=== PATIENT | female | born 1950 | race Caucasian/White ===

== ENCOUNTER 2016-11-26 10:22 | Observation (INO) | payer OTHER, MEDICARE ==
[2016-11-26] MEDS ORDERED: ASPIRIN 81 MG TABLET, CHEWABLE PO ONE ×2 (10:58→11:10)
--- NOTE | 2016-11-26 11:00 | ER Document Report ---
ED Medical Screen (RME) - General Chief Complaint: Chest Pain Stated Complaint: CHEST PAIN Time Seen by Provider: 11/26/16 10:53 Notes: 66-year-old female with a history of non-STEMI approximately 8 months ago presents the emergency department complaining of sudden onset of left lower chest and left upper quadrant abdominal pain that extends to the mid sternal area when she was getting up off the floor. States that it worsened with deep breathing and movement but she was also short of breath and flushed at the time. Nurse at work recommend she come to the emergency department. States it feels somewhat different than her prior heart attack. TRAVEL OUTSIDE OF THE [place] IN LAST 30 DAYS: No - Related Data Allergies/Adverse Reactions: adhesive Allergy (Verified 11/26/16 10:43) latex Allergy (Verified 11/26/16 10:43) Past Medical History - General Information source: Patient - Social History Cigarette use (# per day): No Chew tobacco use (# tins/day): No Frequency of alcohol use: None Drug Abuse: None - Past Medical History Cardiac Medical History: Reports: Hx Hypercholesterolemia - not being treated, Hx Hypertension - not currently being treated Denies: Hx Heart Attack Pulmonary Medical History: Denies: Hx Asthma Neurological Medical History: Reports: Hx Seizures - childhood seizures. Denies : Hx Cerebrovascular Accident Endocrine Medical History: Reports: Hx Diabetes Mellitus Type 2 - managing with diet, taken off meds due to weight loss. Denies: Hx Diabetes Mellitus Type 1 Renal/ Medical History: Denies: Hx Peritoneal Dialysis GI Medical History: Reports: Hx Gastroesophageal Reflux Disease, Hx Ulcer. Denies: Hx Hepatitis, Hx Hiatal Hernia Musculoskeltal Medical History: Reports Hx Arthritis - osteo Psychiatric Medical History: Reports: Hx Depression Infectious Medical History: Denies: Hx Hepatitis Past Surgical History: Reports: Hx Appendectomy, Hx Cholecystectomy, Hx Hysterectomy, Hx Orthopedic Surgery - total left knee replacement surgery. Denies: Hx Mastectomy, Hx Open Heart Surgery, Hx Pacemaker - Immunizations Hx Diphtheria, Pertussis, Tetanus Vaccination: Yes Physical Exam - Vital signs Vitals: Temp Pulse BP Pulse Ox 97.9 F 62 136/59 H 96 11/26/16 10:41 11/26/16 10:41 11/26/16 10:41 11/26/16 10:41 - Respiratory Respiratory status: No respiratory distress Chest status: Nontender Breath sounds: Normal Chest palpation: Normal - Cardiovascular Rhythm: Regular Heart sounds: Normal auscultation Murmur: No Course - Vital Signs Vital signs: Temp Pulse Resp BP Pulse Ox 97.9 F 62 136/59 H 96 11/26/16 10:41 11/26/16 10:41 11/26/16 10:41 11/26/16 10:41
--- NOTE | 2016-11-26 11:17 | ER Document Report ---
ED Cardiac - General Chief Complaint: Chest Pain Stated Complaint: CHEST PAIN Time Seen by Provider: 11/26/16 10:53 Mode of Arrival: Ambulatory Information source: Patient Notes: 66 yo depressed, htn, DM2, left knee replacement, hyst, edd, CAD, COPD, no etoh, no drugs, [place], started hurting left chest/ tightness at 9 am, worse when bending forward and moving, turning made it worse, a little light headed-or spacey feeling, got real relaxed, and was clammy according to the nurse at work. Lasted until she got to the ER after 10 am when she had some shortness of breath. Gone now. She does not think it is heart related. Took 1 baby aspirin at that time. PMH: [place] 8 months ago, sent to [facility], cath done, not bad enough for stent but did damage her heart. PCP: Dr. Markell Rodriguez, Terminal System Operator dr. Tracie Rodriguez. TRAVEL OUTSIDE OF THE [place] IN LAST 30 DAYS: No - Related Data Allergies/Adverse Reactions: adhesive Allergy (Verified 11/26/16 10:43) latex Allergy (Verified 11/26/16 10:43) Past Medical History - General Information source: Patient - Social History Smoking Status: Never Smoker Cigarette use (# per day): No Chew tobacco use (# tins/day): No Frequency of alcohol use: None Drug Abuse: None Family History: None Patient has suicidal ideation: No Patient has homicidal ideation: No - Past Medical History Cardiac Medical History: Reports: Hx Heart Attack, Hx Hypercholesterolemia - not being treated, Hx Hypertension - not currently being treated Neurological Medical History: Reports: Hx Seizures - childhood seizures Endocrine Medical History: Reports: Hx Diabetes Mellitus Type 2 - managing with diet, taken off meds due to weight loss Renal/ Medical History: Denies: Hx Peritoneal Dialysis GI Medical History: Reports: Hx Gastroesophageal Reflux Disease, Hx Ulcer Musculoskeltal Medical History: Reports Hx Arthritis - osteo Psychiatric Medical History: Reports: Hx Depression Past Surgical History: Reports: Hx Appendectomy, Hx Cholecystectomy, Hx Hysterectomy, Hx Orthopedic Surgery - total left knee replacement surgery - Immunizations Hx Diphtheria, Pertussis, Tetanus Vaccination: Yes Hx Pneumococcal Vaccination: 03/31/15 Physical Exam - Vital signs Vitals: Temp Pulse BP Pulse Ox 97.9 F 62 136/59 H 96 11/26/16 10:41 11/26/16 10:41 11/26/16 10:41 11/26/16 10:41 Interpretation: Normal - General General appearance: Appears well, Alert - HEENT Head: Normocephalic, Atraumatic Eyes: Normal Conjunctiva: Normal Pupils: PERRL Neck: Supple - Respiratory Respiratory status: No respiratory distress Chest status: Nontender Breath sounds: Normal Chest palpation: Normal - Cardiovascular Rhythm: Regular Heart sounds: Normal auscultation Murmur: No - Abdominal Inspection: Normal Distension: No distension Bowel sounds: Normal Tenderness: Nontender. No: Tender Organomegaly: No organomegaly - Back Back: Normal, Nontender - Extremities General upper extremity: Normal inspection, Nontender, Normal color, Normal ROM , Normal temperature General lower extremity: Normal inspection, Nontender, Normal color, Normal ROM , Normal temperature, Normal weight bearing. No: Staci's sign - Neurological Neuro grossly intact: Yes Cognition: Normal Orientation: AAOx4 [place] Coma Scale Eye Opening: Spontaneous [place] Coma Scale Verbal: Oriented [place] Coma Scale Motor: Obeys Commands [place] Coma Scale Total: 15 Speech: Normal Motor strength normal: LUE, RUE, LLE, RLE Sensory: Normal - Psychological Associated symptoms: Normal affect, Normal mood - Skin Skin Temperature: Warm Skin Moisture: Dry Skin Color: Normal Course - Re-evaluation Re-evalutation: 11/26/16 13:04 timothy PRUITT will admit for the hospitalist group telemetry observation. Pt agrees to this. the troponin is negative, cxr negative. ekg NSR. other labs OK, pt painfree now. - Vital Signs Vital signs: Temp Pulse Resp BP Pulse Ox 97.9 F 62 14 119/57 L 96 11/26/16 10:41 11/26/16 10:41 11/26/16 11:21 11/26/16 11:21 11/26/16 11:42 - Laboratory Result Diagrams: 11/26/16 11:05 11/26/16 11:05 Laboratory results interpreted by me: 11/26/16 11/26/16 11:05 11:05 RDW 14.3 H Alkaline Phosphatase 180 H Discharge - Discharge Clinical Impression: chest pain Condition: Stable Disposition: ADMITTED OBSERVATION Admitting Provider: Hospitalist Unit Admitted: Telemetry
--- NOTE | 2016-11-26 11:39 | RADIOLOGY REPORT (SQ) ---
EXAM DESCRIPTION: CHEST SINGLE VIEW COMPLETED DATE/TIME: 11/26/2016 11:31 am REASON FOR STUDY: chest pain, SOB COMPARISON: 01/11/2016 EXAM PARAMETERS: NUMBER OF VIEWS: One view. TECHNIQUE: Single frontal radiographic view of the chest acquired. RADIATION DOSE: NA LIMITATIONS: None. FINDINGS: LUNGS AND PLEURA: No opacities, masses or pneumothorax. No pleural effusion. MEDIASTINUM AND HILAR STRUCTURES: No masses. Contour normal. HEART AND VASCULAR STRUCTURES: Heart normal in size. Normal vasculature. BONES: No acute findings. HARDWARE: None in the chest. OTHER: No other significant finding. IMPRESSION: NO ACUTE RADIOGRAPHIC FINDING IN THE CHEST. TECHNICAL DOCUMENTATION: JOB ID: [id number]
[2016-11-26 11:45] LABS: ABSOLUTE BASOPHILS # (AUTO) 0.1 10^3/uL (0.0-0.2); ABSOLUTE EOSINOPHILS # (AUTO) 0.3 10^3/uL (0.0-0.6); ABSOLUTE LYMPHOCYTES (AUTO) 2.4 10^3/uL (0.5-4.7); ABSOLUTE MONOCYTES (AUTO) 0.7 10^3/uL (0.1-1.4); ABSOLUTE NEUT (AUTO) 6.4 10^3/uL (1.7-8.2); EOSINOPHILS % (AUTO) 3.1 % (0-6); HEMATOCRIT 41.6 % (36.0-47.0); HEMOGLOBIN 14.3 g/dL (12.0-15.5); HGB HCT DIFFERENCE 1.3; MEAN CORPUSCULAR HEMOGLOBIN 28.3 pg (27.0-33.4); MEAN CORPUSCULAR HGB CONC 34.4 g/dL (32.0-36.0); MEAN CORPUSCULAR VOLUME 82 fl (80-97); MONOCYTES % (AUTO) 6.7 % (3-13); RED BLOOD COUNT 5.06 10^6/uL (3.72-5.28); RED CELL DISTRIBUTION WIDTH 14.3 % (11.5-14.0); SEGMENTED NEUTROPHILS % (AUTO) 65.2 % (42-78); WHITE BLOOD COUNT 9.9 10^3/uL (4.0-10.5)
[2016-11-26 12:29] LABS: ALANINE AMINOTRANSFERASE 24 U/L (9-52); ALBUMIN 4.2 g/dL (3.5-5.0); ALKALINE PHOSPHATASE 180 U/L (38-126); ANION GAP 11 (5-19); ASPARTATE AMINO TRANSFERASE 21 U/L (14-36); BILIRUBIN,DIRECT 0.4 mg/dL (0.0-0.4); BILIRUBIN,TOTAL 0.6 mg/dL (0.2-1.3); BLOOD UREA NITROGEN 18 mg/dL (7-20); CALCIUM 10.1 mg/dL (8.4-10.2); CARBON DIOXIDE 26 mmol/L (22-30); CHLORIDE 105 mmol/L (98-107); CREATINE KINASE 75 U/L (30-135); CREATININE RESULT 0.72 mg/dL (0.52-1.25); GLUCOSE 91 mg/dL (75-110); POTASSIUM 4.2 mmol/L (3.6-5.0); SODIUM 141.9 mmol/L (137-145)
[2016-11-26 12:34] LABS: CREATINE KINASE MB 1.15 ng/mL (<4.55)
[2016-11-26 12:42] LABS: TROPONIN I < 0.012 ng/mL
[2016-11-26] MEDS ORDERED: DEXTROSE 50%-WATER 25 GM/50 ML DISP.SYRIN IV PRN ×2 (15:07)
[2016-11-26] MEDS ORDERED: GLUCAGON,HUMAN RECOMB 1 MG INJ SUBCUT PRN (15:07)
[2016-11-26] MEDS ORDERED: DEXTROSE 40% GEL 15 GM TUBE PO PRN ×2 (15:07)
--- NOTE | 2016-11-26 15:23 | PDOC H&P ---
History of Present Illness Admission Date/PCP: 11/26/16 13:38 MISAEL OLIVO MD Brand Analyst: Dr. Hodges at the [facility] Patient complains of: Chest pain History of Present Illness: LAYO STOLL is a 66 year old female who presented to the emergency room with chest pain. Her past medical history is significant for a recent non-ST elevation myocardial infarction approximately 8 months ago. She was transferred from this facility to where she underwent a cardiac catheterization and was found to have nonobstructing coronary artery disease that did not require stent placement. Since that time she is followed with Dr. Hodges from the [facility]. In addition the patient has known hypertension, hyperlipidemia and diet-controlled diabetes mellitus. She also has a history of gastroesophageal reflux disease osteoarthritis and depression. She was in her usual state of health until earlier this morning where she developed substernal chest pain and pressure. She states that the pain would get worse anytime she would get up and move around and it would be relieved with rest. She states that she was quite diaphoretic when this was going on. She has had no nausea or vomiting. She states that the pain did not radiate. Past Medical History Cardiac Medical History: Reports: Myocardial Infarction, Hyperlipidema - not being treated, Hypertension - not currently being treated Pulmonary Medical History: Denies: Asthma, Chronic Obstructive Pulmonary Disease (COPD) EENT Medical History: Reports: None Neurological Medical History: Reports: Seizures - childhood seizures Denies: Ischemic CVA, Migraine Endocrine Medical History: Reports: Diabetes Mellitus Type 2 - managing with diet, taken off meds due to weight loss Denies: Diabetes Mellitus Type 1 Renal/ Medical History: Reports: None Malignancy Medical History: Reports: None GI Medical History: Reports: None, Gastroesophageal Reflux Disease Denies: Hepatitis, Hiatal Hernia, Peptic Ulcer Disease Musculoskeltal Medical History: Reports: Arthritis - osteo Skin Medical History: Reports: None Psychiatric Medical History: Reports: Depression Denies: Dementia, General Anxiety Disorder, Substance Abuse, Tobacco Dependency Traumatic Medical History: Reports: None Hematology: Denies: Anemia, Bleeding Tendencies Infectious Medical History: Reports: None Past Surgical History Past Surgical History: Reports: Appendectomy, Cholecystectomy, Hysterectomy, Orthopedic Surgery - total left knee replacement surgery Denies: Amputation, Mastectomy, Pacemaker Social History Information Source: Patient Lives with: Spouse/Significant other Smoking Status: Never Smoker Frequency of Alcohol Use: None Hx Recreational Drug Use: No Hx Prescription Drug Abuse: No - Advance Directive Resuscitation Status: Full Code Family History Family History: CAD Parental Family History Reviewed: Yes Children Family History Reviewed: Yes Sibling(s) Family History Reviewed.: Yes Medication/Allergy Allergies/Adverse Reactions: adhesive Allergy (Verified 11/26/16 10:43) latex Allergy (Verified 11/26/16 10:43) Review of Systems Constitutional: PRESENT: headache(s). ABSENT: chills, fever(s), night sweats, weight loss Eyes: ABSENT: visual disturbances Ears: ABSENT: hearing changes Nose, Mouth, and Throat: PRESENT: headache(s). ABSENT: sore throat, vertigo Cardiovascular: PRESENT: chest pain, palpitations - She reports that she has felt like her heart has been racing at night at times.. ABSENT: edema, orthropnea Respiratory: PRESENT: cough Gastrointestinal: PRESENT: heartburn. ABSENT: abdominal pain, bloating, constipation, dysphagia, nausea, vomiting Genitourinary: ABSENT: difficulty urinating, dysuria, hematuria Musculoskeletal: PRESENT: back pain Integumentary: PRESENT: diaphoresis. ABSENT: erythema, lesions, pruritus, rash , wounds Neurological: ABSENT: abnormal gait, abnormal speech, confusion, dizziness, frequent falls, memory loss, numbness, syncope, tingling, weakness Psychiatric: PRESENT: depression. ABSENT: anxiety Endocrine: ABSENT: cold intolerance, heat intolerance, polydipsia, polyuria Hematologic/Lymphatic: ABSENT: easy bleeding, easy bruising, lymphadenopathy Allergic/Immunologic: PRESENT: seasonal rhinorrhea Physical Exam Vital Signs: Temp Pulse Resp BP Pulse Ox 97.9 F 62 16 119/50 L 97 11/26/16 10:41 11/26/16 10:41 11/26/16 14:01 11/26/16 14:01 11/26/16 14:01 General appearance: PRESENT: no acute distress, obese, well-developed, well- nourished Head exam: PRESENT: atraumatic, normocephalic Eye exam: PRESENT: conjunctiva pink, EOMI, PERRLA. ABSENT: scleral icterus Ear exam: PRESENT: normal external ear exam Mouth exam: PRESENT: moist, neck supple, tongue midline Neck exam: ABSENT: carotid bruit, JVD, lymphadenopathy, thyromegaly Respiratory exam: PRESENT: clear to auscultation dar. ABSENT: rales, rhonchi, wheezes Cardiovascular exam: PRESENT: RRR. ABSENT: diastolic murmur, rubs, systolic murmur Vascular exam: PRESENT: normal capillary refill GI/Abdominal exam: PRESENT: normal bowel sounds, soft. ABSENT: distended, guarding, mass, organolmegaly, rebound, tenderness Rectal exam: PRESENT: deferred Extremities exam: PRESENT: full ROM. ABSENT: calf tenderness, clubbing, pedal edema Musculoskeletal exam: PRESENT: ambulatory Neurological exam: PRESENT: alert, awake, oriented to person, oriented to place , oriented to time, oriented to situation, CN II-XII grossly intact. ABSENT: motor sensory deficit Psychiatric exam: PRESENT: appropriate affect, normal mood. ABSENT: homicidal ideation, suicidal ideation Skin exam: PRESENT: dry, intact, warm. ABSENT: cyanosis, rash Results Impressions: Chest X-Ray 11/26/16 10:58 IMPRESSION: NO ACUTE RADIOGRAPHIC FINDING IN THE CHEST. Assessment & Plan - Diagnosis (1) Chest pain Plan: The patient has known coronary artery disease that is nonobstructing per cardiac catheterization 8 months ago. She will be admitted to observation and the hospital. We will trend her serial troponins and obtain a Cardiolite stress test in the morning. Will place the patient on Nitropaste for now as well as full dose Lovenox. She will continue aspirin and Plavix but her aspirin will be increased temporarily to 325 mg daily. We will keep her on telemetry and follow-up tomorrow. (2) Coronary artery disease Plan: She has known nonobstructing disease per cardiac catheterization 8 months ago. Plan as above. (3) Hyperlipidemia Plan: Her atorvastatin will be increased to 80 mg daily. (4) Hypertension Plan: She will continue her metoprolol succinate. (5) Type 2 diabetes mellitus Plan: This is diet controlled. She is on no medication. Will obtain hemoglobin A1c in the morning. (6) Gastroesophageal reflux disease Plan: Continue H2 jose (7) Seasonal allergies Plan: Continue Flonase and Symbicort (8) Depression Plan: Continue Effexor - Time Time Spent: 50 to 70 Minutes Anticipated discharge: Home - Inpatient Certification Medical Necessity: Other - The patient will be placed in observation in the hospital. I anticipate that her hospitalization will be less than 2 midnights.
[2016-11-26 16:37] LABS: CREATINE KINASE MB 0.84 ng/mL (<4.55)
[2016-11-26 16:41] LABS: TROPONIN I < 0.012 ng/mL
[2016-11-26] MEDS: ENOXAPARIN SODIUM INJ 120 MG/0.8 ML DISP.SYRIN SUBCUT SCH (18:59)
[2016-11-26] MEDS: NITROGLYCERIN 2% OINTMENT 1 GM PACKET TP SCH ×2 (19:02→23:27)
[2016-11-26] MEDS: FAMOTIDINE 20 MG TABLET PO SCH (21:29)
[2016-11-26] MEDS: BUDESONIDE/FORMOTEROL 160-4.5 MCG 60 PUFF/6 GM MDI IH SCH (21:32)
[2016-11-26 21:48] LABS: CREATINE KINASE MB 0.81 ng/mL (<4.55)
[2016-11-26 22:00] LABS: TROPONIN I < 0.012 ng/mL
[2016-11-26] MEDS ORDERED: ATORVASTATIN CALCIUM 80 MG TABLET PO SCH (22:00)
--- NOTE | 2016-11-27 00:16 | EKG REPORT ---
SEVERITY:- NORMAL ECG - SINUS RHYTHM : Confirmed by: Ashwin Javed 27-Nov-2016 00:16:04
[2016-11-27 04:01] LABS: ABSOLUTE BASOPHILS # (AUTO) 0.1 10^3/uL (0.0-0.2); ABSOLUTE EOSINOPHILS # (AUTO) 0.3 10^3/uL (0.0-0.6); ABSOLUTE LYMPHOCYTES (AUTO) 2.6 10^3/uL (0.5-4.7); ABSOLUTE MONOCYTES (AUTO) 0.6 10^3/uL (0.1-1.4); BASOPHILS % (AUTO) 1.1 % (0-2); EOSINOPHILS % (AUTO) 3.3 % (0-6); HEMATOCRIT 38.2 % (36.0-47.0); HEMOGLOBIN 12.8 g/dL (12.0-15.5); HGB HCT DIFFERENCE 0.2; LYMPHOCYTES % (AUTO) 30.3 % (13-45); MEAN CORPUSCULAR HEMOGLOBIN 27.5 pg (27.0-33.4); MEAN CORPUSCULAR HGB CONC 33.5 g/dL (32.0-36.0); MEAN CORPUSCULAR VOLUME 82 fl (80-97); MONOCYTES % (AUTO) 7.2 % (3-13); RED BLOOD COUNT 4.65 10^6/uL (3.72-5.28); RED CELL DISTRIBUTION WIDTH 14.3 % (11.5-14.0); SEGMENTED NEUTROPHILS % (AUTO) 58.1 % (42-78); WHITE BLOOD COUNT 8.6 10^3/uL (4.0-10.5)
[2016-11-27 04:24] LABS: ANION GAP 9 (5-19); BLOOD UREA NITROGEN 16 mg/dL (7-20); CALCIUM 9.3 mg/dL (8.4-10.2); CARBON DIOXIDE 25 mmol/L (22-30); CHLORIDE 108 mmol/L (98-107); CHOLESTEROL 142.19 mg/dL (0-200); CREATININE RESULT 0.71 mg/dL (0.52-1.25); Direct HDL 51 mg/dL (>40); GLUCOSE 94 mg/dL (75-110); POTASSIUM 4.3 mmol/L (3.6-5.0); SODIUM 141.9 mmol/L (137-145); TRIGLYCERIDES 95 mg/dL (<150)
[2016-11-27 04:34] LABS: DIRECT LDL 81 mg/dL (<100)
[2016-11-27 04:35] LABS: CREATINE KINASE MB 0.67 ng/mL (<4.55)
[2016-11-27 04:36] LABS: TROPONIN I < 0.012 ng/mL
[2016-11-27] MEDS: ENOXAPARIN SODIUM INJ 120 MG/0.8 ML DISP.SYRIN SUBCUT SCH (05:27)
[2016-11-27] MEDS: NITROGLYCERIN 2% OINTMENT 1 GM PACKET TP SCH ×2 (06:48→12:04)
--- NOTE | 2016-11-27 09:50 | EKG REPORT ---
SEVERITY:- NORMAL ECG - SINUS RHYTHM : Confirmed by: Ashwin Javed 27-Nov-2016 09:49:36
[2016-11-27] MEDS: FAMOTIDINE 20 MG TABLET PO SCH (09:59)
[2016-11-27] MEDS ORDERED: LISINOPRIL 10 MG TABLET PO SCH ×2 (10:00)
[2016-11-27] MEDS: BUDESONIDE/FORMOTEROL 160-4.5 MCG 60 PUFF/6 GM MDI IH SCH (10:00)
[2016-11-27] MEDS ORDERED: METOPROLOL SUCCINATE 25 MG TAB.SR.24H PO SCH ×2 (10:00)
[2016-11-27] MEDS ORDERED: ASPIRIN 325 MG TABLET, ENT COATED PO SCH (10:00)
[2016-11-27] MEDS ORDERED: FLUTICASONE NASAL SPRAY 50 MCG/SPRY 120 SPRAY/16 GM NASL SCH (10:00)
[2016-11-27] MEDS ORDERED: CLOPIDOGREL BISULFATE 75 MG TABLET PO SCH (10:00)
[2016-11-27] MEDS ORDERED: VENLAFAXINE HCL 75 MG TABLET PO SCH (10:00)
[2016-11-27] MEDS ORDERED: REGADENOSON INJ 0.4 MG/5 ML DISP.SYRIN IV ONE (10:28)
[2016-11-27 12:47] VITALS: BP 129/58
--- NOTE | 2016-11-27 13:52 | PDOC DISCHARGE SUMMARY ---
General - Admit/Disc Date/PCP Admission Date/Primary Care Provider: 11/26/16 14:57 MISAEL OLIVO MD Discharge Date: 11/27/16 - Discharge Diagnosis (1) Chest pain Is this a current diagnosis for this admission?: Yes Summary: Ruled out for acute coronary syndrome. Symptoms more suggestive of GI origin, will increase zantac to 300 mg qhs for the next 2 weeks. Follow up with PCP if symptoms persist (2) Coronary artery disease Is this a current diagnosis for this admission?: Yes Summary: Cath 8 mos ago nonobstructing disease not requiring intervention. She has been on statin, aspirin and following with cardiology at [facility] (3) Gastroesophageal reflux disease Is this a current diagnosis for this admission?: Yes Summary: Continue zantac (4) Hyperlipidemia Is this a current diagnosis for this admission?: Yes Summary: Continue statin. Fasting lipid within desired range (5) Hypertension Is this a current diagnosis for this admission?: Yes Summary: Continue home medications (6) Seasonal allergies Is this a current diagnosis for this admission?: Yes (7) Type 2 diabetes mellitus Is this a current diagnosis for this admission?: Yes Summary: Continue home medications - Additional Information Resuscitation Status: Full Code Home Medications: Aspirin [Aspirin EC] 81 mg PO DAILY 11/26/16 Atorvastatin Calcium [Lipitor 40 mg Tablet] 40 mg PO QHS 11/26/16 Calcium Phosphate Trib/Vit D3 [Caltrate Gummy Bites] 1 tab PO DAILY 11/26/16 Clopidogrel Bisulfate [Plavix 75 mg Tablet] 75 mg PO DAILY 11/26/16 Fluticasone Propionate [Flonase Nasal Chambers 50 Mcg/Chambers 16 gm] 2 spr IN DAILY 11/26/16 Metoprolol Succinate [Toprol Xl] 25 mg PO DAILY 11/26/16 Nitroglycerin [Nitrostat] 0.4 tab PO .Q5 MINUTES PRN 11/26/16 Ranitidine HCl [Zantac 150 mg Tablet] 150 mg PO QHS 11/26/16 Venlafaxine HCl ER [Effexor Xr 75 mg Cap.sr] 225 mg PO DAILY 11/26/16 History of Present Illness Patient complains of: Chest pain, left epigastric came on at rest History of Present Illness: LAYO STOLL is a 66 year old female who presented to the emergency room with chest pain. Her past medical history is significant for a recent non-ST elevation myocardial infarction approximately 8 months ago. She was transferred from this facility to where she underwent a cardiac catheterization and was found to have nonobstructing coronary artery disease that did not require stent placement. Since that time she is followed with [facility]. Hod[facility]. In addition the patient has known hypertension, hyperlipidemia and diet-controlled diabetes mellitus. She also has a history of gastroesophageal reflux disease osteoarthritis and depression. She was in her usual state of health until earlier this morning where she developed substernal chest pain and pressure. She states that the pain would get worse anytime she would get up and move around and it would be relieved with rest. She states that she was quite diaphoretic when this was going on. She has had no nausea or vomiting. She states that the pain did not radiate. Hospital Course Hospital Course: Patient was admitted to the hospitalist service on telemetry. She had serial troponins drawn which were all unremarkable. She had no recurrence of epigastric chest pain. Today she underwent Cardiolite stress testing. Test was interpreted by Dr. Barragan, cardiology, as negative for ischemia. Physical Exam Vital Signs: Temp Pulse Resp BP Pulse Ox 98.4 F 62 15 129/58 H 96 11/27/16 11:46 11/27/16 11:46 11/27/16 11:46 11/27/16 11:46 11/27/16 11:46 Intake & Output 11/26/16 11/27/16 11/28/16 06:59 06:59 06:59 Intake Total 220 222 Output Total 500 200 Balance -280 22 Weight 107 kg General appearance: PRESENT: no acute distress, obese, well-developed, well- nourished Head exam: PRESENT: atraumatic, normocephalic Eye exam: PRESENT: conjunctiva pink, EOMI, PERRLA. ABSENT: scleral icterus Ear exam: PRESENT: normal external ear exam Mouth exam: PRESENT: moist, tongue midline Neck exam: ABSENT: carotid bruit, JVD, lymphadenopathy, thyromegaly Respiratory exam: PRESENT: accessory muscle use Cardiovascular exam: PRESENT: RRR. ABSENT: diastolic murmur, rubs, systolic murmur Pulses: PRESENT: normal dorsalis pedis pul Vascular exam: PRESENT: normal capillary refill GI/Abdominal exam: PRESENT: normal bowel sounds, soft. ABSENT: distended, guarding, mass, organolmegaly, rebound, tenderness Rectal exam: PRESENT: deferred Extremities exam: PRESENT: full ROM. ABSENT: calf tenderness, clubbing, pedal edema Musculoskeletal exam: PRESENT: ambulatory Neurological exam: PRESENT: alert, awake, oriented to person, oriented to place , oriented to time, oriented to situation, CN II-XII grossly intact. ABSENT: motor sensory deficit Psychiatric exam: PRESENT: appropriate affect, normal mood. ABSENT: homicidal ideation, suicidal ideation Skin exam: PRESENT: dry, intact, warm. ABSENT: cyanosis, rash Results Laboratory Results: 11/27/16 03:20 11/27/16 03:20 11/27/16 11/27/16 03:20 03:20 WBC 8.6 RBC 4.65 Hgb 12.8 Hct 38.2 MCV 82 MCH 27.5 MCHC 33.5 RDW 14.3 H Plt Count 240 Seg Neutrophils % 58.1 Lymphocytes % 30.3 Monocytes % 7.2 Eosinophils % 3.3 Basophils % 1.1 Absolute Neutrophils 5.0 Absolute Lymphocytes 2.6 Absolute Monocytes 0.6 Absolute Eosinophils 0.3 Absolute Basophils 0.1 Sodium 141.9 Potassium 4.3 Chloride 108 H Carbon Dioxide 25 Anion Gap 9 BUN 16 Creatinine 0.71 Est GFR ( Amer) > 60 Est GFR (Non-Af Amer) > 60 Glucose 94 Calcium 9.3 Phosphorus 4.0 Triglycerides 95 Cholesterol 142.19 LDL Cholesterol Direct 81 VLDL Cholesterol 19.0 HDL Cholesterol 51 11/26/16 11/26/16 11/27/16 15:43 20:50 03:20 CK-MB (CK-2) 0.84 0.81 0.67 Troponin I < 0.012 < 0.012 < 0.012 Impressions: Chest X-Ray 11/26/16 10:58 IMPRESSION: NO ACUTE RADIOGRAPHIC FINDING IN THE CHEST. Qualifiers PATEINT BEING DISCHARGED WITH ANY OF THE FOLLOWING DIAGNOSIS?: No Plan Discharge Plan: Home Time Spent: Less than 30 Minutes
--- NOTE | 2016-11-27 15:19 | DRAGON STRESS TEST REPORT ---
Intravenous Lexiscan Cardiolite stress test using single photon emmision computerized tomography. Date of procedure: 0 11/27/2016. Ordering Provider: Ms. Nilsa Juarez NP. Patient's status: In Patient Indication: Chest pain. Coronary risk factors: History of CAD, hypertension, diabetes mellitus, family history of coronary artery disease.,and dyslipidemia. Resting EKG: Sinus Rhythm. Within Normal Limits. Stress EKG: No changes of ischemia. The patient had no chest pain or discomfort, and there were no arrhythmias seen. Reason for termination: Protocol. Conclusions: Normal EKG and hemodynamic response to IV Lexiscan. Nuclear data: At rest the patient was given 14.48 millicuries of technetium 99m sestamibi injected intravenously. As per protocol rest non gated SPECT images were obtained. Subsequently the patient was given intravenous Lexiscan at a dose of 0.4 mg in 5 mL intravenously, followed by flush with normal saline. Subsequently the stress dose of 44.7 millicuries of technetium 99m sestamibi was injected intravenously. As per protocol stress gated images were obtained. Nuclear interpretation: Review of images showed that this is a poor quality study, with significant liver contamination artifact of inferior wall. All segments of the myocardium had normal perfusion at rest, and normal perfusion post stress with IV Lexiscan. All segments of the myocardium had normal motion and thickening by gated study. There is seen to be a slightly decreased contraction due to liver contamination artifact involving the basal and mid inferior bahena. T. I D. ratio was normal at 1.04. Computer read rest, and stress left ventricular ejection fraction were 66 %, and 62 %, respectively. Conclusion: 1. There is no scintigraphic evidence of Lexiscan induced myocardial ischemia. 2. There is no definite scintigraphic evidence of myocardial infarction/scar. Recommendations: Aggressive risk factor modification, and treating the underlying co- morbidities. Would maximize anti-CAD medication. MTDD
== END 2016-11-27 14:30 | disposition home or self-care (01) ==
LOC: ER 10:22 → UNDOADMOB 13:38 → EH 13:38 → 5 14:57 → EH 15:19 → 5 15:19
PROVIDERS: ADMIT Family Medicine; ATTEND Family Medicine
DX: R07.2 Precordial pain (principal); R07.89 Other chest pain; I25.10 Atherosclerotic heart disease of native coronary artery without angina pectoris; K21.9 Gastro-esophageal reflux disease without esophagitis; E78.5 Hyperlipidemia, unspecified; I10 Essential (primary) hypertension; J30.2 Other seasonal allergic rhinitis; E11.9 Type 2 diabetes mellitus without complications; M19.90 Unspecified osteoarthritis, unspecified site; E66.9 Obesity, unspecified; R51 Headache; R00.2 Palpitations; M54.9 Dorsalgia, unspecified; R05 Cough; I25.2 Old myocardial infarction; Z79.82 Long term (current) use of aspirin; Z79.899 Other long term (current) drug therapy; Z79.02 Long term (current) use of antithrombotics/antiplatelets; Z90.49 Acquired absence of other specified parts of digestive tract; Z87.11 Personal history of peptic ulcer disease; Z82.49 Family history of ischemic heart disease and other diseases of the circulatory system; F32.9 Major depressive disorder, single episode, unspecified; Z68.39 Body mass index [BMI] 39.0-39.9, adult
CPT/HCPCS: 93005 ×2; 99285; 36415 ×2; 82553 ×2; 82550; 84100; 85025 ×2; 80048; 80053; 84484 ×2; 80061; 93017; 71010; 78452; 93010 ×2; G0378 ×2; A9500; J2785; J3490 ×2; J1650 ×2; Q9969

== ENCOUNTER 2017-05-18 01:01 | Emergency (ER) | payer MEDICARE, OTHER ==
[2017-05-18] MEDS ORDERED: ONDANSETRON HCL INJ/PF 4 MG/2 ML SDV IV ONE (01:51)
[2017-05-18] MEDS ORDERED: NORMAL SALINE 1000 ML 500 ML IV ONE (01:51)
[2017-05-18] MEDS ORDERED: KETOROLAC TROMETHAMINE INJ/PF 30 MG/1 ML SDV IV ONE (01:52)
[2017-05-18 01:56] LABS: ABSOLUTE BASOPHILS # (AUTO) 0.1 10^3/uL (0.0-0.2); ABSOLUTE EOSINOPHILS # (AUTO) 0.1 10^3/uL (0.0-0.6); ABSOLUTE MONOCYTES (AUTO) 0.6 10^3/uL (0.1-1.4); ABSOLUTE NEUT (AUTO) 7.9 10^3/uL (1.7-8.2); BASOPHILS % (AUTO) 0.9 % (0-2); EOSINOPHILS % (AUTO) 0.8 % (0-6); HEMOGLOBIN 13.6 g/dL (12.0-15.5); LYMPHOCYTES % (AUTO) 19.1 % (13-45); MEAN CORPUSCULAR HEMOGLOBIN 27.3 pg (27.0-33.4); MEAN CORPUSCULAR HGB CONC 33.9 g/dL (32.0-36.0); MEAN CORPUSCULAR VOLUME 81 fl (80-97); MONOCYTES % (AUTO) 5.3 % (3-13); PLATELET COUNT 274 10^3/uL (150-450); RED BLOOD COUNT 4.98 10^6/uL (3.72-5.28); RED CELL DISTRIBUTION WIDTH 14.8 % (11.5-14.0); SEGMENTED NEUTROPHILS % (AUTO) 73.9 % (42-78); TOTAL CELLS COUNTED % (AUTO) 100 %; WHITE BLOOD COUNT 10.7 10^3/uL (4.0-10.5)
[2017-05-18 02:02] LABS: APPEARANCE,URINE CLOUDY; BILIRUBIN,URINE NEGATIVE (NEGATIVE); CALCIUM OXALATE CRYSTALS,URINE MANY /HPF; COLOR,URINE YELLOW; GLUCOSE, URINE NEGATIVE (NEGATIVE); KETONES,URINE TRACE mg/dL (NEGATIVE); LEUKOCYTE ESTERASE,URINE SMALL (NEGATIVE); NITRITE,URINE NEGATIVE (NEGATIVE); PROTEIN,URINE 30 mg/dL (NEGATIVE); URINE SPECIFIC GRAVITY 1.027
[2017-05-18 02:10] LABS: ANION GAP 10 (5-19); BLOOD UREA NITROGEN 17 mg/dL (7-20); CALCIUM 9.8 mg/dL (8.4-10.2); CARBON DIOXIDE 24 mmol/L (22-30); CHLORIDE 105 mmol/L (98-107); GLUCOSE 110 mg/dL (75-110); SODIUM 139.4 mmol/L (137-145)
--- NOTE | 2017-05-18 02:37 | RADIOLOGY REPORT (SQ) ---
EXAM DESCRIPTION: ACUTE ABDOMEN SERIES CLINICAL HISTORY: cough, left flank pain,luq pain COMPARISON: None. FINDINGS: Single view of the chest with upright spine views of the abdomen. Atherosclerotic calcification of the thoracic aorta. Heart is not enlarged. No consolidation, pneumothorax, or pleural effusion. Prior cholecystectomy. No dilated loops of large or small bowel. Moderate amount of stool. No definite abnormal calcifications. Degenerative change of the spine. No acute osseous abnormalities. IMPRESSION: 1. No acute pulmonary process. 2. Nonobstructive bowel gas pattern.
[2017-05-18] MEDS ORDERED: FENTANYL CITRATE INJ/PF 100 MCG/2 ML AMPUL IV ONE (02:45)
--- NOTE | 2017-05-18 03:52 | RADIOLOGY REPORT (SQ) ---
EXAM DESCRIPTION: CT ABDOMEN AND PELVIS WITHOUT CONTRAST CLINICAL HISTORY: left flank pain radiating to left abd, hematuria COMPARISON: None Available. TECHNIQUE: CT of the abdomen and pelvis without IV contrast. Evaluation of the solid organs and vasculature is suboptimal due to lack of IV contrast. DLP: 1437.01 mGy-cm FINDINGS: Lung Bases: The visualized lung bases are clear. Bones: Degenerative spondylosis of the visualized thoracic and lumbar spine. Bridging anterior osteophytes of the thoracic spine could be seen with DISH. Facet arthropathy. Abdomen: Liver: Scattered calcified granulomas throughout the liver. The liver is otherwise unremarkable. Gallbladder: Prior cholecystectomy. Spleen, Pancreas, and Adrenal Glands: Scattered granulomas throughout the spleen. The pancreas and adrenal glands are unremarkable. Kidneys: The kidneys have normal size and contour without evidence of hydronephrosis. No obstructing ureteral calculi. Vasculature: Aortoiliac atherosclerosis. IVC is unremarkable. Stomach: The stomach and duodenum have normal course. Other: No free intraperitoneal air. No free fluid or lymphadenopathy. Pelvis: Bladder: Urinary bladder is unremarkable. Bowel: Scattered diverticula of the colon. No pericolic fat stranding or wall thickening. No dilated loops of large or small bowel. Appendix: The appendix is not identified. No right lower quadrant inflammatory change. Reported history of appendectomy. Pelvis: Prior hysterectomy. IMPRESSION: 1. No acute abnormality to explain patient's symptoms. 2. Diverticulosis without evidence of diverticulitis. This exam was performed according to our departmental dose-optimization program, which includes automated exposure control, adjustment of the mA and/or kV according to patient size and/or use of iterative reconstruction technique.
[2017-05-18] MEDS ORDERED: LIDOCAINE 2% VISCOUS SOLN 20 ML UDCUP PO ONE (04:05)
[2017-05-18] MEDS ORDERED: MAG HYDROX/AL HYDROX/SIMETH SUSP 30 ML UDCUP PO ONE (04:05)
[2017-05-18] MEDS ORDERED: METOCLOPRAMIDE HCL ORAL SOLN 10 MG/10 ML UDCUP PO ONE (04:05)
[2017-05-18] MEDS ORDERED: MORPHINE SULFATE 10 MG/ML INJ IV ONE (05:15)
--- NOTE | 2017-05-18 05:18 | ER Document Report ---
ED General Pain - General Chief Complaint: Back Pain Stated Complaint: BACK PAIN Time Seen by Provider: 05/18/17 01:26 Mode of Arrival: Ambulatory Information source: Patient Notes: Patient is a 66-year-old female who presents to the ER today for left flank pain 1 week. Patient states that she was seen another emergency department in [facility] and diagnosed with musculoskeletal back pain after they performed CAT scan there and did not see anything causing her pain. Patient admits that she has been having some increased frequency of urination over the past couple of days, denies any hematuria, dysuria, history of kidney stones. Patient states that over the past 2 days the pain has "changed" and it is now radiating around the side to her left upper abdomen. She admits to nausea but no vomiting, denies diarrhea. She does have a primary care provider. TRAVEL OUTSIDE OF THE [place] IN LAST 30 DAYS: No - Related Data Allergies/Adverse Reactions: adhesive Allergy (Verified 11/26/16 10:43) latex Allergy (Verified 11/26/16 10:43) Past Medical History - General Information source: Patient - Social History Smoking Status: Never Smoker Chew tobacco use (# tins/day): No Frequency of alcohol use: None Drug Abuse: None Family History: CAD Patient has suicidal ideation: No Patient has homicidal ideation: No - Past Medical History Cardiac Medical History: Reports: Hx Hypercholesterolemia - not being treated, Hx Hypertension - not currently being treated Denies: Hx Heart Attack Pulmonary Medical History: Denies: Hx Asthma, Hx COPD Neurological Medical History: Reports: Hx Seizures - childhood seizures. Denies : Hx Cerebrovascular Accident, Hx Migraine Endocrine Medical History: Reports: Hx Diabetes Mellitus Type 2 - managing with diet, taken off meds due to weight loss. Denies: Hx Diabetes Mellitus Type 1 Renal/ Medical History: Denies: Hx Peritoneal Dialysis GI Medical History: Reports: Hx Gastroesophageal Reflux Disease, Hx Ulcer. Denies: Hx Hepatitis, Hx Hiatal Hernia Musculoskeltal Medical History: Reports Hx Arthritis - osteo Psychiatric Medical History: Reports: Hx Depression Denies: Hx Dementia Infectious Medical History: Denies: Hx Hepatitis Past Surgical History: Reports: Hx Appendectomy, Hx Cholecystectomy, Hx Hysterectomy, Hx Orthopedic Surgery - total left knee replacement surgery. Denies: Hx Mastectomy, Hx Open Heart Surgery, Hx Pacemaker - Immunizations Hx Diphtheria, Pertussis, Tetanus Vaccination: Yes Hx Pneumococcal Vaccination: 03/31/15 Review of Systems - Review of Systems Constitutional: No symptoms reported EENT: No symptoms reported Cardiovascular: No symptoms reported Respiratory: No symptoms reported Gastrointestinal: See HPI Genitourinary: See HPI Female Genitourinary: No symptoms reported Musculoskeletal: See HPI Skin: No symptoms reported Hematologic/Lymphatic: No symptoms reported Neurological/Psychological: No symptoms reported Physical Exam - Vital signs Vitals: Temp Pulse Resp BP Pulse Ox 97.9 F 78 16 152/71 H 93 05/18/17 01:08 05/18/17 01:08 05/18/17 01:08 05/18/17 01:08 05/18/17 01:08 - Notes Notes: PHYSICAL EXAMINATION: GENERAL: Uncomfortable appearing, but in no acute distress. HEAD: Atraumatic, normocephalic. EYES: Pupils equal round and reactive to light, extraocular movements intact, sclera anicteric, conjunctiva are normal. NECK: Normal range of motion, supple without lymphadenopathy LUNGS: CTAB and equal. No wheezes rales or rhonchi. HEART: Regular rate and rhythm without murmurs ABDOMEN: Soft, no tenderness. No guarding, no rebound BACK: no vertebral tenderness, normal ROM GI/: no CVA tenderness EXTREMITIES: Normal range of motion, no pitting edema. No cyanosis. NEUROLOGICAL: Cranial nerves grossly intact. Normal sensory/motor exams. PSYCH: Normal mood, normal affect. SKIN: Warm, Dry, normal turgor, no rashes or lesions noted Course - Re-evaluation Re-evalutation: 05/18/17 05:28 Patient actually has no tenderness to exam to left flank or abdomen, laboratory work is unremarkable today except for some hematuria on urinalysis. X-ray reports no acute pathology, nonobstructive bowel gas pattern, CAT scan reports no acute pathology, no explanation for patient's symptoms. Patient states that GI cocktail helped her upper abdominal pain. I did advise patient that her presentation is nonspecific today for any exact pathology. She has hematuria and increased urination, but no evidence of kidney stone on CAT scan and no evidence of infection to the urine. She has left upper quadrant pain, but lipase is normal. GI cocktail did improve epigastric pain so I will treat her with Carafate and Prilosec. I do advise that she follow up with urologist and have given her this information for the hematuria, left flank pain and increased frequency of urination. - Vital Signs Vital signs: Temp Pulse Resp BP Pulse Ox 97.9 F 78 16 152/71 H 93 05/18/17 01:08 05/18/17 01:08 05/18/17 01:08 05/18/17 01:08 05/18/17 01:08 - Laboratory Result Diagrams: 05/18/17 01:45 05/18/17 01:45 Laboratory results interpreted by me: 05/18/17 05/18/17 01:36 01:45 WBC 10.7 H RDW 14.8 H Urine Protein 30 H Urine Ketones TRACE H Urine Blood SMALL H Urine Urobilinogen 2.0 H Ur Leukocyte Esterase SMALL H Discharge - Discharge Clinical Impression: Epigastric pain, Left flank pain Hematuria Qualifiers: Hematuria type: other microscopic Qualified Code(s): R31.29 - Other microscopic hematuria Condition: Stable Disposition: HOME, SELF-CARE Additional Instructions: Return immediately for any new or worsening symptoms. Follow up with primary care provider, call tomorrow to make followup appointment. Please follow-up with the urologist about your blood in your urine. Prescriptions: Hydrocodone/Acetaminophen [[place] 5-325 mg Tablet] 1 tab PO Q4 PRN #10 tablet PRN Reason: Omeprazole Magnesium [Prilosec Otc] 20 mg PO BID #40 tablet. Ondansetron [Zofran Odt 4 mg Tablet] 1 - 2 tab PO Q4H PRN #30 tab.rapdis PRN Reason: For Nausea/Vomiting Sucralfate [Carafate 1 gm Tablet] 1 gm PO ACHS #40 tablet Referrals: MISAEL OLIVO MD [Primary Care Provider] - Follow up as needed VENICE ORLANDO DO [DIRECTOR [employer]] - Follow up as needed
[2017-05-18 05:53] VITALS: BP 146/62
== END 2017-05-18 05:45 | disposition home or self-care (01) ==
LOC: ER 01:01
DX: R10.13 Epigastric pain (principal); R10.12 Left upper quadrant pain; R10.9 Unspecified abdominal pain; R31.29 Other microscopic hematuria; R35.0 Frequency of micturition; R11.0 Nausea; I10 Essential (primary) hypertension; E11.9 Type 2 diabetes mellitus without complications; Z90.49 Acquired absence of other specified parts of digestive tract; Z87.19 Personal history of other diseases of the digestive system; Z91.040 Latex allergy status
CPT/HCPCS: 99284; 96374; 96375; 36415; 83690; 85025; 80048; 81001; 74022; 76380; J3010; J3490; J1885; A9270; J2270; J2405; J7030

== ENCOUNTER 2018-03-19 21:44 | Emergency (ER) | payer OTHER ==
[2018-03-19 22:04] VITALS: BP 172/68
[2018-03-19] MEDS ORDERED: VALACYCLOVIR HCL 500 MG TABLET PO ONE (22:47)
--- NOTE | 2018-03-19 22:50 | ER Document Report ---
ED General - General Chief Complaint: Abdominal Pain Stated Complaint: RIGHT SIDE PAIN Time Seen by Provider: 03/19/18 22:08 Notes: Very pleasant 67-year-old female with history of hypertension, ACS 2 years ago, diabetes controlled with diet, and shingles presents to the emergency department for right sided pain along the level of the thoracic dermatome approximately T8. She states the pain started last Tuesday and briefly went away but came back as a dull aching pain with some associated burning and tingling into her right breast. She denies any fevers, chills, syncope, lightheadedness, dizziness, central chest pain, shortness of breath, lower abdominal pain, any pain on her left side. She denies any recent illness. She had a previous episode of shingles 2 years ago on her left side. She has not gotten the shingles vaccine. TRAVEL OUTSIDE OF THE [place] IN LAST 30 DAYS: No - Related Data Allergies/Adverse Reactions: adhesive Allergy (Verified 11/26/16 10:43) latex Allergy (Verified 11/26/16 10:43) Past Medical History - General Information source: Patient - Social History Smoking Status: Never Smoker Frequency of alcohol use: None Family History: CAD Patient has suicidal ideation: No Patient has homicidal ideation: No - Past Medical History Cardiac Medical History: Reports: Hx Hypercholesterolemia - not being treated, Hx Hypertension - not currently being treated Denies: Hx Heart Attack Pulmonary Medical History: Denies: Hx Asthma, Hx COPD Neurological Medical History: Reports: Hx Seizures - childhood seizures. Denies: Hx Cerebrovascular Accident, Hx Migraine Endocrine Medical History: Reports: Hx Diabetes Mellitus Type 2 - managing with diet, taken off meds due to weight loss. Denies: Hx Diabetes Mellitus Type 1 Renal/ Medical History: Denies: Hx Peritoneal Dialysis GI Medical History: Reports: Hx Gastroesophageal Reflux Disease, Hx Ulcer. Denies: Hx Hepatitis, Hx Hiatal Hernia Musculoskeletal Medical History: Reports Hx Arthritis - osteo Psychiatric Medical History: Reports: Hx Depression Denies: Hx Dementia Infectious Medical History: Denies: Hx Hepatitis Past Surgical History: Reports: Hx Appendectomy, Hx Cholecystectomy, Hx Hysterectomy, Hx Orthopedic Surgery - total left knee replacement surgery. Denies: Hx Mastectomy, Hx Open Heart Surgery, Hx Pacemaker - Immunizations Hx Diphtheria, Pertussis, Tetanus Vaccination: Yes Hx Pneumococcal Vaccination: 03/31/15 Review of Systems - Review of Systems Constitutional: See HPI EENT: See HPI Cardiovascular: See HPI Respiratory: See HPI Gastrointestinal: See HPI Genitourinary: No symptoms reported Female Genitourinary: No symptoms reported Musculoskeletal: No symptoms reported Skin: See HPI Hematologic/Lymphatic: No symptoms reported Neurological/Psychological: No symptoms reported Physical Exam - Vital signs Vitals: Temp Pulse Resp BP Pulse Ox 98.3 F 66 16 172/68 H 97 03/19/18 22:03 03/19/18 22:03 03/19/18 22:03 03/19/18 22:03 03/19/18 22:03 - Notes Notes: PHYSICAL EXAMINATION: Reviewed vital signs and charting by RN GENERAL: Well-appearing, well-nourished and in no acute distress. HEAD: Atraumatic, normocephalic. EYES: Pupils equal, extraocular movements intact, sclera anicteric, conjunctiva are normal. ENT: nares patent Moist mucous membranes. NECK: Normal range of motion LUNGS: Breath sounds clear to auscultation bilaterally and equal. No wheezes rales or rhonchi. HEART: Regular rate and rhythm without murmurs ABDOMEN: Soft, nontender, normoactive bowel sounds. No guarding, no rebound. No masses appreciated. Mild tenderness to palpation right side from her back at the level of T8 that wraps around to just below her breast along the dermatomal pattern. EXTREMITIES: Normal range of motion, no pitting or edema. No cyanosis. NEUROLOGICAL: Face symmetric. Tongue protrudes midline. Extraocular motions intact. Pupils are 2 mm and equally reactive. Normal speech, normal gait. 5 out of 5 strength in both the distal and proximal upper and lower extremities bilaterally. Sensation is grossly intact throughout. Finger to nose testing normal. Pronator drift normal. 2+ patellar and ankle reflexes bilaterally. PSYCH: Normal mood, normal affect. SKIN: Warm, Dry, normal turgor, no rashes or lesions noted. Course - Re-evaluation Re-evalutation: 03/20/18 01:01 Very pleasant 67-year-old female presents in no acute distress to the emergency room for right-sided pain. 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 She denies any central chest pain or any concerning symptoms for ACS. Her symptoms are consistent with prodrome of shingles. She has had a shingles attack in the past. Briefly discussed the case with Dr. Mishra and he agrees. There are no red flags concerning for ACS, flank pain related to nephrolithiasis, biliary pathology, or any GI pathology. There is no evidence of any other dermatomal patterns including the ear or the eyes. At this time plan is to treat her with valacyclovir 1 g first dose in the emergency department and discharge her with a 10-day course of valacyclovir. Patient is stable for discharge with strict return precautions. - Vital Signs Vital signs: Temp Pulse Resp BP Pulse Ox 98.3 F 66 16 172/68 H 97 03/19/18 22:05 03/19/18 22:05 03/19/18 22:05 03/19/18 22:03 03/19/18 22:05 Discharge - Discharge Clinical Impression: Shingles Qualifiers: Herpes zoster complications: without complications Qualified Code(s): B02.9 - Zoster without complications Condition: Good Disposition: HOME, SELF-CARE Instructions: Shingles ([facility]) Additional Instructions: He was seen in the emergency department this evening for shingles. You have been prescribed a medication called valacyclovir which you should take 3 times a day for 7 days. This can be a very painful condition and you should take Tylenol as needed for pain. Also, if you notice any other involvement especially in your ears or eyes please immediately return to the emergency department as this could be a debilitating condition. Please return to the emergency department if you develop high fever, worsening symptoms, or have any other concerns. Prescriptions: Valacyclovir HCl [Valacyclovir] 1,000 mg PO TID 7 Days #21 tablet
== END 2018-03-19 22:58 | disposition home or self-care (01) ==
LOC: ER 21:44
DX: B02.9 Zoster without complications (principal); I10 Essential (primary) hypertension; E11.9 Type 2 diabetes mellitus without complications; Z91.048 Other nonmedicinal substance allergy status; Z91.040 Latex allergy status
CPT/HCPCS: 99283

== ENCOUNTER 2019-10-04 17:28 | Emergency (ER) | payer OTHER, MEDICARE ==
--- NOTE | 2019-10-04 18:00 | RADIOLOGY REPORT (SQ) ---
EXAM DESCRIPTION: CHEST SINGLE VIEW IMAGES COMPLETED DATE/TIME: 10/04/2019 5:52 pm REASON FOR STUDY: chest pain COMPARISON: 01/11/2016 EXAM PARAMETERS: NUMBER OF VIEWS: One view. TECHNIQUE: Single frontal radiographic view of the chest acquired. RADIATION DOSE: NA LIMITATIONS: None. FINDINGS: LUNGS AND PLEURA: No opacities, masses or pneumothorax. No pleural effusion. MEDIASTINUM AND HILAR STRUCTURES: No masses. Contour normal. HEART AND VASCULAR STRUCTURES: Heart normal in size. Normal vasculature. BONES: No acute findings. HARDWARE: None in the chest. OTHER: No other significant finding. IMPRESSION: NO ACUTE RADIOGRAPHIC FINDING IN THE CHEST. TECHNICAL DOCUMENTATION: JOB ID: [id number] 2010 [employer]- All Rights Reserved Reading location - IP/workstation name: [email or web address]
[2019-10-04 18:03] LABS: ABSOLUTE BASOPHILS # (AUTO) 0.1 10^3/uL (0.0-0.2); ABSOLUTE EOSINOPHILS # (AUTO) 0.3 10^3/uL (0.0-0.6); ABSOLUTE LYMPHOCYTES (AUTO) 2.4 10^3/uL (0.5-4.7); ABSOLUTE MONOCYTES (AUTO) 0.6 10^3/uL (0.1-1.4); ABSOLUTE NEUT (AUTO) 6.7 10^3/uL (1.7-8.2); BASOPHILS % (AUTO) 0.9 % (0-2); EOSINOPHILS % (AUTO) 2.6 % (0-6); HEMATOCRIT 43.3 % (36.0-47.0); HEMOGLOBIN 14.3 g/dL (12.0-15.5); LYMPHOCYTES % (AUTO) 23.9 % (13-45); MEAN CORPUSCULAR HEMOGLOBIN 27.5 pg (27.0-33.4); MEAN CORPUSCULAR HGB CONC 32.9 g/dL (32.0-36.0); MEAN CORPUSCULAR VOLUME 84 fl (80-97); MONOCYTES % (AUTO) 6.1 % (3-13); PLATELET COUNT 263 10^3/uL (150-450); RED BLOOD COUNT 5.18 10^6/uL (3.72-5.28); SEGMENTED NEUTROPHILS % (AUTO) 66.5 % (42-78); TOTAL CELLS COUNTED % (AUTO) 100 %
[2019-10-04 18:14] LABS: ALKALINE PHOSPHATASE 150 U/L (38-126); ANION GAP 6 (5-19); ASPARTATE AMINO TRANSFERASE 20 U/L (14-36); BILIRUBIN,TOTAL 0.6 mg/dL (0.2-1.3); BLOOD UREA NITROGEN 11 mg/dL (7-20); CALCIUM 9.4 mg/dL (8.4-10.2); CARBON DIOXIDE 27 mmol/L (22-30); CHLORIDE 106 mmol/L (98-107); CREATINE KINASE 59 U/L (30-135); GLUCOSE 110 mg/dL (75-110); POTASSIUM 3.9 mmol/L (3.6-5.0); TOTAL PROTEIN 6.8 g/dL (6.3-8.2)
[2019-10-04 18:26] LABS: CREATINE KINASE MB 0.84 ng/mL (<4.55); TROPONIN I < 0.012 ng/mL
[2019-10-04 18:27] LABS: INTERNATIONAL RATION (INR) 0.96
[2019-10-04 18:28] LABS: PARTIAL THROMBOPLASTIN TIME 26.3 SEC (23.5-35.8)
--- NOTE | 2019-10-04 20:02 | EKG REPORT ---
SEVERITY:- NORMAL ECG - SINUS RHYTHM : Confirmed by: Mark Rooney MD 04-Oct-2019 20:01:06
[2019-10-04] MEDS ORDERED: NITROGLYCERIN/D5W 50 MG/250 ML RTUINJ IV PRN (21:08)
[2019-10-04] MEDS: ENOXAPARIN SODIUM INJ 120 MG/0.8 ML DISP.SYRIN SUBCUT SCH (21:21)
--- NOTE | 2019-10-04 22:26 | ER Document Report ---
Entered by NILA YODER SCRIBE 10/04/19 [id number] Acting as scribe for:DANIEL NUNO MD ED Cardiac - General Chief Complaint: Chest Pain Stated Complaint: CHEST PAIN Time Seen by Provider: 10/04/19 17:34 Mode of Arrival: Medic Information source: Patient Notes: This 69 year old female patient with CAD and prior WI in 2018 without stent placement presents to the emergency department today with complaints of left sided chest pain for the last three days. Patient states that her chest pain was intermittent until just prior to arrival today. She reports that it "feels like her boob is going to explode". Patient reports that she was at the [employer] today and her chest pain began again and did not subside. Patient reports having a negative stress test between 6 months to a year ago. Patient complains of a little bit of nausea with associated diaphoresis. Pre-hospital intervention: 325 mg aspirin, 2 sublingual nitroglycerin, nitroglycerin drip TRAVEL OUTSIDE OF THE [place] IN LAST 30 DAYS: No - Related Data Allergies/Adverse Reactions: adhesive Allergy (Verified 11/26/16 10:43) latex Allergy (Verified 11/26/16 10:43) Past Medical History - General Information source: Patient - Social History Smoking Status: Unknown if Ever Smoked Cigarette use (# per day): No Frequency of alcohol use: None Drug Abuse: None Lives with: Family Family History: Reviewed & Not Pertinent, CAD - Past Medical History Cardiac Medical History: Reports: Hx Coronary Artery Disease, Hx Heart Attack - 2018, no stents plaeced, Hx Hypercholesterolemia, Hx Hypertension Neurological Medical History: Reports: Hx Seizures - childhood seizures Endocrine Medical History: Reports: Hx Diabetes Mellitus Type 2 GI Medical History: Reports: Hx Gastroesophageal Reflux Disease, Hx Ulcer Musculoskeletal Medical History: Reports Hx Arthritis - osteo Psychiatric Medical History: Reports: Hx Depression Past Surgical History: Reports: Hx Appendectomy, Hx Cardiac Catheterization - no stents placed, Hx Cholecystectomy, Hx Hysterectomy, Hx Orthopedic Surgery - total left knee replacement surgery - Immunizations Hx Diphtheria, Pertussis, Tetanus Vaccination: Yes Hx Pneumococcal Vaccination: 03/31/15 Review of Systems - Review of Systems Constitutional: No symptoms reported EENT: No symptoms reported Cardiovascular: See HPI, Chest pain Respiratory: No symptoms reported Gastrointestinal: See HPI, Nausea. denies: Vomiting Genitourinary: No symptoms reported Female Genitourinary: No symptoms reported Musculoskeletal: No symptoms reported Skin: No symptoms reported Hematologic/Lymphatic: No symptoms reported Neurological/Psychological: No symptoms reported -: Yes All other systems reviewed and negative Physical Exam - Vital signs Vitals: Resp 18 10/04/19 17:41 - Notes Notes: Physical Exam: General: Alert, appears well. HEENT: Normocephalic. Atraumatic. PERRL. Extraocular movements intact. Oropharynx clear. Neck: Supple. Non-tender. Respiratory: No respiratory distress. Clear and equal breath sounds bilaterally. Cardiovascular: Regular rate and rhythm. Abdominal: Obese. Non-tender. No distension. Normal Bowel Sounds. Back: No gross abnormalities. Extremities: Moves all four extremities. Upper extremities: Normal inspection. Normal ROM. Lower extremities: Normal inspection. No edema. Normal ROM. Neurological: Normal cognition. AAOx4. Normal speech. Psychological: Normal affect. Normal Mood. Skin: Warm. Dry. Normal color. Course - Re-evaluation Re-evalutation: 10/04/19 21:25 Patient states she still has a residual left-sided chest pain 0 and 1 1 in terms of number. She reports that pain has been consistent despite feeling much better after EMS provided her sublingual nitroglycerin 4 baby aspirin's and a nitroglycerin drip in route. 10/04/19 22:[address] Arreola the on-call hose stripper for the hospital today Dr. Arreola reviewed patient's past medical history and the [facility] chart documentation. It shows that patient had a non-STEMI infarct in the past. Patient has known coronary diseases of 30% ulcerated lesion in the LAD and intermediate narrowing in the RCA. August 2018 patient had a nuclear medicine cardiac stress test which was reported out as normal. Much as patient has had an WI in the past has known coronary artery disease and an ulcerated lesion in her LAD in 2016, and over the fact the patient has any residual discomfort at this time between 0 and 1 despite the improvement she may from the chest discomfort she had prior to arrival. Dr. Arreola believes the patient should be transferred to a facility such as [facility] where her records are not hose stripper is for further evaluation of an acute coronary syndrome. 10/05/19 13:49 Reevaluation the patient shows patient is hemodynamically stable and patient has had 4- troponins at this time not showing any evidence for an acute WI. Patient is pain is determined at this time to be chest wall pain on the left rib cage a nteriorly. Patient does admit that she has been doing some exertional activity with range of motion and stretching trying to improve muscles of her left upper extremity. Patient was seen by the hose stripper Dr. Arreola and we are all in agreement that patient is not having an acute coronary syndrome at this time. - Vital Signs Vital signs: Temp Pulse Resp BP Pulse Ox 98.0 F 71 12 143/62 H 95 10/04/19 17:42 10/05/19 02:26 10/05/19 10:00 10/05/19 08:21 10/05/19 10:00 Vital signs are stable. 10/04/19 22:19 Vital signs stable - Laboratory Result Diagrams: 10/04/19 17:48 10/04/19 17:48 Laboratory results interpreted by me: 10/04/19 17:48 Alkaline Phosphatase 150 H Laboratories essentially unremarkable alkaline phosphatase 150 is only elevatio n. Troponin at this time is within normal limits. 10/04/19 22:20 Laboratories essentially normal with 2- troponins at this time. - Diagnostic Test Radiology reviewed: Image reviewed Radiology results interpreted by me: 10/04/19 22:19 Chest x-ray shows no acute process. - EKG Interpretation by Me Additional EKG results interpreted by me: 10/04/19 22:19 Twelve-lead EKG shows normal sinus rhythm no acute changes no ST changes to suggest ischemia or infarct. - Transfer of Care Care transferred to following provider: Dr. Noe sunshine Notes: 10/04/19 22:23 Initiated transferred to [facility] in [facility]. I was reported by the transfer center that there have been high-volume and emergencies that at this point time they could not receive a phone call however they do have the patient listed in his system and his son is a are able they will call back to discuss patient's transfer. Critical Care Note - Critical Care Note Total time excluding time spent on procedures (mins): 50 - Evaluation of patient and was having chest pain and a known coronary artery disease patient who still has a residual chest pain ongoing at this time. Reviewing records discussion with hose stripper and discussion with the transfer center at [facility] for transfer of an acute coronary syndrome patient. Management of chest pain and evaluating EKG. Discharge - Discharge Clinical Impression: Type 2 diabetes mellitus, Hyperlipidemia, Chest pain, Coronary artery disease, Left-sided chest wall pain Condition: Stable Disposition: HOME, SELF-CARE Instructions: Chest Wall Pain ([facility]) Additional Instructions: Chest Wall Pain Your chest pain has been diagnosed as coming from the chest wall. This is often caused by straining the muscles or joints in the chest during physical activity, direct trauma, coughing, or vigorous vomiting. Persons with arthritis are especially prone to this type of pain, due to inflammation of the cartilage joints near the breast bone. Occasionally, no cause can be found. Rest from strenuous physical activity. This kind of chest pain is usually made worse by movement of the chest. Depending on the symptoms, we may prescribe medicine for pain, muscle relaxation, and antiinflammatory effects. If the pain is new, and seems to be due to muscle strain, cold packs can help. Otherwise, apply gentle warmth to the painful area for 15 minutes every hour or two. You should contact the doctor immediately if things change. Further evaluation is needed if you develop a fever or cough, if the nature of the pain changes, or if you become short of breath. I recommend you begin Tylenol extra strength tablets 500 mg tablets and take 2 tablets twice a day as needed for chest wall pain. No new prescriptions prescribed at this time. I personally performed the services described in the documentation, reviewed and edited the documentation which was dictated to the scribe in my presence, and it accurately records my words and actions.
--- NOTE | 2019-10-05 01:28 | ER Document Report ---
ED General - General Chief Complaint: Chest Pain Stated Complaint: CHEST PAIN Time Seen by Provider: 10/04/19 17:34 Mode of Arrival: Medic TRAVEL OUTSIDE OF THE [place] IN LAST 30 DAYS: No - Related Data Allergies/Adverse Reactions: adhesive Allergy (Verified 11/26/16 10:43) latex Allergy (Verified 11/26/16 10:43) Past Medical History - General Information source: Patient - Social History Smoking Status: Unknown if Ever Smoked Cigarette use (# per day): No Frequency of alcohol use: None Drug Abuse: None Lives with: Family Family History: Reviewed & Not Pertinent, CAD - Past Medical History Cardiac Medical History: Reports: Hx Coronary Artery Disease, Hx Heart Attack - 2018, no stents plaeced, Hx Hypercholesterolemia, Hx Hypertension Pulmonary Medical History: Denies: Hx Asthma, Hx COPD Neurological Medical History: Reports: Hx Seizures - childhood seizures. Denies: Hx Cerebrovascular Accident, Hx Migraine Endocrine Medical History: Reports: Hx Diabetes Mellitus Type 2. Denies: Hx Diabetes Mellitus Type 1 Renal/ Medical History: Denies: Hx Peritoneal Dialysis GI Medical History: Reports: Hx Gastroesophageal Reflux Disease, Hx Ulcer. Denies: Hx Hepatitis, Hx Hiatal Hernia Musculoskeletal Medical History: Reports Hx Arthritis - osteo Psychiatric Medical History: Reports: Hx Depression Denies: Hx Dementia Infectious Medical History: Denies: Hx Hepatitis Past Surgical History: Reports: Hx Appendectomy, Hx Cardiac Catheterization - no stents placed, Hx Cholecystectomy, Hx Hysterectomy, Hx Orthopedic Surgery - total left knee replacement surgery. Denies: Hx Mastectomy, Hx Open Heart Surgery, Hx Pacemaker - Immunizations Hx Diphtheria, Pertussis, Tetanus Vaccination: Yes Hx Pneumococcal Vaccination: 03/31/15 Physical Exam - Vital signs Vitals: Resp 18 10/04/19 17:41 Course - Vital Signs Vital signs: Temp Pulse Resp BP Pulse Ox 98.0 F 14 132/53 H 97 10/04/19 17:42 10/05/19 01:01 10/05/19 01:01 10/05/19 01:01 - Laboratory Result Diagrams: 10/04/19 17:48 10/04/19 17:48 Laboratory results interpreted by me: 10/04/19 17:48 Alkaline Phosphatase 150 H Discharge - Discharge Clinical Impression: Acute coronary syndrome, Type 2 diabetes mellitus, Hyperlipidemia, Chest pain, Coronary artery disease Condition: Fair
--- NOTE | 2019-10-05 06:11 | ER Document Report ---
Doctor's Note Notes: 10/05/19 06:02 Patient turned over to me pending dispo. Patient is a 69-year-old female history of CAD prior NE without stents or surgery who presents with chest pain that has been intermittent over the last approximately 2 weeks who with worsening pain few hours prior to presentation. Patient has had left-sided chest pain described as "aching" with radiation to jaw which is similar to her prior anginal pain. Pain began after the sudden of her nephew 2 weeks ago and patient has been under extreme emotional stress. The pain was intermittent initially and then few hours prior to arrival became constant and more severe. She was given 2 nitro sublingual by EMS in route which improved her pain and then was started on nitro drip by EMS which further improved the pain. Patient has been accepted to [facility]. I made several attempts to contact [facility] where she has previously received cardiac care and was told that the only doctor in the hospital who could accept transfers was busy with an emergency that would take many more hours and there was nobody else I could speak to regarding a transfer and Dr. Davis in ED refused ED to ED transfer. I then contacted [facility] who had previously cared for her also and she was accepted by Dr. Mariola Lopez and I spoke to Dr. Richardson regarding her care. Patient's labs and EKGs were also sent to Dr. Richardson. Patient has been stable on nitroglycerin drip. Throughout the night I have performed numerous re-evaluations of patient and titrated up the nitro drip from 15 to 25 to 40 and now to 50 and patient is currently chest pain-free. Each increase in the nitro drip improved patient's pain. I obtained repeat EKGs and patient serial EKGs have been non-dynamic without any signs of acute ischemia. Patient's repeat troponins have also been negative. Given that patient status has remained improved since arrival on nitro drip patient is still appropriate to wait for bed at [facility] and does not require that alternate transfer arrangements be made at this time. Critical Care Note - Critical Care Note Total time excluding time spent on procedures (mins): 40 - Spent time consulting with outside hospital and performing multiple reassessments of patient. Course - Vital Signs Vital signs: Temp Pulse Resp BP Pulse Ox 98.4 F 71 18 130/54 H 98 10/05/19 13:54 10/05/19 02:26 10/05/19 13:54 10/05/19 13:54 10/05/19 13:54 - Laboratory Result Diagrams: 10/04/19 17:48 10/04/19 17:48 Laboratory results interpreted by me: 10/04/19 17:48 Alkaline Phosphatase 150 H - EKG Interpretation by Me Additional EKG results interpreted by me: 10/05/19 01:00 repeat EKG, heart rate of 75, sinus rhythm, no significant ST elevations or depressions, QTC 487, no significant change from initial EKG 10/05/19 04:30 Additional repeat EKG, heart rate 74, sinus rhythm, no significant ST elevations or depressions, no significant change from prior EKGs - Transfer of Care Care transferred to following provider: Dr. Simmons
--- NOTE | 2019-10-05 09:47 | EKG REPORT ---
SEVERITY:- BORDERLINE ECG - SINUS RHYTHM BORDERLINE PROLONGED QT INTERVAL : Confirmed by: Mark Rooney MD 05-Oct-2019 09:46:18
--- NOTE | 2019-10-05 09:47 | EKG REPORT ---
SEVERITY:- BORDERLINE ECG - SINUS RHYTHM BORDERLINE PROLONGED QT INTERVAL : Confirmed by: Mark Rooney MD 05-Oct-2019 09:46:37
[2019-10-05] MEDS: ENOXAPARIN SODIUM INJ 120 MG/0.8 ML DISP.SYRIN SUBCUT SCH (10:22)
--- NOTE | 2019-10-05 12:41 | PDOC CONSULTATION ---
Consultation Consult Date: 10/05/19 Attending physician:: DANIEL NUNO Provider Consulted: BELKIS JOSEPH Consult reason:: Atypical chest pain History of Present Illness History of Present Illness: LAYO STOLL is a 69 year old female with history of hypertension, hyperlipidemia, diabetes, coronary artery disease status post non-ST elevation MA in December 2015 at [facility] at which time she was found to have a 30% proximal LAD ulcerated lesion that was treated medically. She also was noted to have an intermediate lesion of her mid RCA which was treated medically as well. She had been in her usual state of health until approximately 3 or 4 days ago when she began with chest discomfort that she described as a sharp pain, localized to a discrete area under the left breast, of sudden onset, which progressively got worse to the point it has been constantly present for 1 or 2 days, worse with palpation of the area, occasionally radiating to the back, without known triggers, nonpleuritic and not associated with shortness of breath, palpitations, diaphoresis, syncope or presyncope. She reported to the emergency room yesterday and was placed on a nitroglycerin drip by EMS however her pain has not changed at all and had been constantly present for at least 24 hours or more. She used to be followed by Dr. Ady Hodges at [facility]. She had a Lexiscan nuclear stress test on 09/21/2018 with normal results. This morning she is found in the emergency room laying in her bed without any particular complaints. Given her cardiovascular history it was attempted to transfer her to tertiary hospital however they were no beds available therefore she was kept in the emergency room. Physical exam on 10/05/2019: GENERAL: Pleasant and conversational. Obese. Oriented x3 with normal mood. Not in acute distress. Well groomed and well developed. HEENT: Normocephalic, atraumatic. Pupils equal. Sclerae anicteric. Oropharynx moist. NECK: No JVD. No carotid bruits. LUNGS: Clear to auscultation bilaterally. Normal respiratory effort without the use of accessory muscles or intercostal retractions. CARDIOVASCULAR: Regular rate and rhythm, normal S1 and S2 without murmurs, rubs, or gallops. PMI not displaced. ABDOMEN: No masses or tenderness to palpation. No bruit. No splenomegaly or hepatomegaly. No abdominal aorta bruit noted. EXTREMITIES: No edema, no cyanosis, no clubbing. +2 pulses femoral and pedal pulses bilaterally. SKIN: No lesions or rashes. MUSCULOSKELETAL: Palpation of the left costal border underneath her left breast reproduces her index symptoms. NEUROLOGIC: Nonfocal. No gross sensory or motor deficits bilateral upper or lower extremities. Past Medical History Cardiac Medical History: Reports: Coronary Artery Disease, Myocardial Infarction - 2018, no stents plaeced, Hyperlipidema, Hypertension Pulmonary Medical History: Denies: Asthma, Chronic Obstructive Pulmonary Disease (COPD) Neurological Medical History: Reports: Seizures - childhood seizures Denies: Migraine Endocrine Medical History: Reports: Diabetes Mellitus Type 2 Denies: Diabetes Mellitus Type 1 GI Medical History: Reports: Gastroesophageal Reflux Disease Denies: Hepatitis, Hiatal Hernia Musculoskeltal Medical History: Reports: Arthritis - osteo Psychiatric Medical History: Reports: Depression Denies: Dementia Hematology: Denies: Anemia, Bleeding Tendencies Past Surgical History Past Surgical History: Reports: Appendectomy, Cardiac Catheterization - no stents placed, Cholecystectomy, Hysterectomy, Orthopedic Surgery - total left knee replacement surgery Denies: Amputation, Mastectomy, Pacemaker Social History Lives with: Family Smoking Status: Unknown if Ever Smoked Frequency of Alcohol Use: None Hx Recreational Drug Use: No Hx Prescription Drug Abuse: No Family History Family History: Reviewed & Not Pertinent, CAD Parental Family History Reviewed: Yes Children Family History Reviewed: Yes Sibling(s) Family History Reviewed.: Yes Medication/Allergy Home Medications: Aspirin [Aspirin EC] 81 mg PO DAILY 11/26/16 Atorvastatin Calcium [Lipitor 40 mg Tablet] 40 mg PO QHS 11/26/16 Calcium Phosphate Trib/Vit D3 [Caltrate Gummy Bites] 1 tab PO DAILY 11/26/16 Clopidogrel Bisulfate [Plavix 75 mg Tablet] 75 mg PO DAILY 11/26/16 Fluticasone Propionate [Flonase Nasal [place] 50 Mcg/[place] 16 gm] 2 spr IN DAILY 11/26/16 Metoprolol Succinate [Toprol Xl] 25 mg PO DAILY 11/26/16 Nitroglycerin [Nitrostat] 0.4 tab PO .Q5 MINUTES PRN 11/26/16 Ranitidine HCl [Zantac 150 mg Tablet] 150 mg PO QHS 11/26/16 Venlafaxine HCl ER [Effexor Xr 75 mg Cap.sr] 225 mg PO DAILY 11/26/16 Hydrocodone/Acetaminophen [[place] 5-325 mg Tablet] 1 tab PO Q4 PRN #10 tablet 05/18/17 Omeprazole Magnesium [Prilosec Otc] 20 mg PO BID #40 tablet. 05/18/17 Ondansetron [Zofran Odt 4 mg Tablet] 1 - 2 tab PO Q4H PRN #30 tab.rapdis 05/18/17 Sucralfate [Carafate 1 gm Tablet] 1 gm PO ACHS #40 tablet 05/18/17 Valacyclovir HCl [Valacyclovir] 1,000 mg PO TID 7 Days #21 tablet 03/19/18 Allergies/Adverse Reactions: adhesive Allergy (Verified 11/26/16 10:43) latex Allergy (Verified 11/26/16 10:43) Physical Exam Vital Signs: Temp Pulse Resp BP Pulse Ox 98.0 F 71 12 143/62 H 95 10/04/19 17:42 10/05/19 02:26 10/05/19 10:00 10/05/19 08:21 10/05/19 10:00 Intake & Output 10/04/19 10/05/19 10/06/19 06:59 06:59 06:59 Intake Total 58 67 Balance 58 67 Weight 112.4 kg Results Laboratory Results: 10/04/19 17:48 10/04/19 17:48 10/04/19 10/04/19 17:48 17:48 WBC 10.0 RBC 5.18 Hgb 14.3 Hct 43.3 MCV 84 MCH 27.5 MCHC 32.9 RDW 14.0 Plt Count 263 Seg Neutrophils % 66.5 Sodium 138.6 Potassium 3.9 Chloride 106 Carbon Dioxide 27 Anion Gap 6 BUN 11 Creatinine 0.72 Est GFR ( Amer) > 60 Glucose 110 Calcium 9.4 Total Bilirubin 0.6 AST 20 Alkaline Phosphatase 150 H Total Protein 6.8 Albumin 4.0 10/04/19 10/04/19 10/04/19 17:48 17:48 17:48 Creatine Kinase 59 CK-MB (CK-2) 0.84 Troponin I < 0.012 NT-Pro-B Natriuret Pep 90 10/04/19 10/05/19 20:10 04:24 Creatine Kinase CK-MB (CK-2) Troponin I < 0.012 0.023 NT-Pro-B Natriuret Pep Impressions: Chest X-Ray 10/04/19 17:30 IMPRESSION: NO ACUTE RADIOGRAPHIC FINDING IN THE CHEST. 10/04/19 17:48 10/04/19 17:48 MCV 84 fl (80-97) 10/04/19 17:48 MCH 27.5 pg (27.0-33.4) 10/04/19 17:48 MCHC 32.9 g/dL (32.0-36.0) 10/04/19 17:48 RDW 14.0 % (11.5-14.0) 10/04/19 17:48 Seg Neutrophils % 66.5 % (42-78) 10/04/19 17:48 Chloride 106 mmol/L (98-107) 10/04/19 17:48 Carbon Dioxide 27 mmol/L (22-30) 10/04/19 17:48 Anion Gap 6 (5-19) 10/04/19 17:48 Est GFR ( Amer) > 60 (>60) 10/04/19 17:48 Glucose 110 mg/dL (75-110) 10/04/19 17:48 Calcium 9.4 mg/dL (8.4-10.2) 10/04/19 17:48 Total Bilirubin 0.6 mg/dL (0.2-1.3) 10/04/19 17:48 AST 20 U/L (14-36) 10/04/19 17:48 Alkaline Phosphatase 150 U/L (38-126) H 10/04/19 17:48 Total Protein 6.8 g/dL (6.3-8.2) 10/04/19 17:48 Albumin 4.0 g/dL (3.5-5.0) 10/04/19 17:48 10/04/19 10/04/19 10/04/19 17:48 17:48 17:48 Creatine Kinase 59 CK-MB (CK-2) 0.84 Troponin I < 0.012 NT-Pro-B Natriuret Pep 90 10/04/19 10/05/19 20:10 04:24 Creatine Kinase CK-MB (CK-2) Troponin I < 0.012 0.023 NT-Pro-B Natriuret Pep Current Medication List Generic Name Dose Route Start Last Admin Trade Name Freq PRN Reason Stop Dose Admin Enoxaparin Sodium 110 mg 10/04/19 22:00 10/05/19 10:22 Lovenox Inj 120 Mg/0.8 Ml Disp.Syrin SUBCUT 11/03/19 21:59 110 mg Q12 DHRUV Administration Nitroglycerin/Dextrose 50 mg in 250 mls @ 0 mls/hr 10/04/19 21:08 10/05/19 12:10 Ntg Rtu 50 Mg/D5w 250 Ml Iv Premix Bottle IV 11/03/19 21:07 0 mcg/min CONTINUOUS PRN 0 mls/hr THIS MED IS NOT "PRN" Titration Protocol Titrate Assessment & Plan - Diagnosis (1) Chest pain Is this a current diagnosis for this admission?: Yes Plan: 69-year-old female with history of coronary artery disease as described above who had been having atypical and reproducible chest pain constantly for at least 24 hours or more in the setting of normal troponins and normal Lexiscan nuclear stress test in August 2018 at [facility]. She does have reproducible chest pain with palpation of the left costal margin underneath her left breast. Her EKG is in the emergency room have not demonstrated any ischemic changes. Recommendations: -No further ischemic work-up indicated at this time. -The patient may be discharged home from the cardiovascular standpoint with follow-up with [facility].
[2019-10-05 14:00] VITALS: BP 130/54
--- NOTE | 2019-10-05 15:09 | EKG REPORT ---
SEVERITY:- BORDERLINE ECG - SINUS RHYTHM BORDERLINE PROLONGED QT INTERVAL : Confirmed by: Mark Rooney MD 05-Oct-2019 15:08:50
== END 2019-10-05 14:09 | disposition home or self-care (01) ==
LOC: ER 17:28
DX: E11.9 Type 2 diabetes mellitus without complications (principal); R07.9 Chest pain, unspecified; E78.5 Hyperlipidemia, unspecified; R07.89 Other chest pain; R11.0 Nausea; R61 Generalized hyperhidrosis; I25.10 Atherosclerotic heart disease of native coronary artery without angina pectoris; I25.2 Old myocardial infarction; Z88.8 Allergy status to other drugs, medicaments and biological substances
CPT/HCPCS: 93005 ×2; 99291; 96372; 96365; 96366; 36415; 82553; 82550; 85025; 85610; 85730; 80053; 84484; 83880; 71045; 93010 ×2; J1650 ×2; J3490